=== PATIENT | female | born 1980 | race Caucasian/White ===

== ENCOUNTER 2021-04-23 18:08 | Emergency (ER) | payer BC ==
--- NOTE | 2021-04-23 20:18 | XR ---
EXAMINATION TYPE: XR chest 1V portable DATE OF EXAM: 04/23/2021 COMPARISON: NONE HISTORY: Cough and congestion TECHNIQUE: Single view FINDINGS: There is some mild infiltrate right lower lobe. Other lung bautista are clear. Heart and medi astinum are normal. There is no pleural effusion. IMPRESSION: There is some mild right lower lobe pneumonia.
[2021-04-23] MEDS ORDERED: KETOROLAC 30 MG/ML 1 ML VIAL IVP STA (23:36)
[2021-04-23] MEDS ORDERED: DEXAMETHASONE SOD PHOSPHATE 10 MG/ML 1 ML VIAL IVP STA (23:36)
[2021-04-23] MEDS ORDERED: SODIUM CHLORIDE 0.9% 1,000 ML IV STA (23:36)
[2021-04-23] MEDS ORDERED: ACETAMINOPHEN TAB 500 MG TAB PO STA (23:36)
--- NOTE | 2021-04-23 23:39 | ED ---
Fever HPI - General Chief Complaint: Upper Respiratory Infection Stated Complaint: Covid Positive Time Seen by Provider: 04/23/21 23:33 Source: patient, family, RN notes reviewed, old records reviewed Mode of arrival: ambulatory Limitations: no limitations - History of Present Illness Initial Comments: This is a 40-year-old female to the ER for evaluation. Patient has known coronavirus coming a friend by treatment for coronavirus. Patient better. No current nausea vomiting or diarrhea. No other complaints no chest pain MD Complaint: fever, malaise -: days(s) Context: sick contacts, multiple patients with similar symptoms Associated Symptoms: chills, myalgias, sore throat, cough, chest pain, nausea Treatments Prior to Arrival: none - Related Data Allergies Allergy/AdvReac Type Severity Reaction Status Date / Time No Known Allergies Allergy Verified 04/23/21 19:41 Review of Systems ROS Statement: Those systems with pertinent positive or pertinent negative responses have been documented in the HPI. ROS Other: All systems not noted in ROS Statement are negative. Past Medical History Past Medical History: No Reported History History of Any Multi-Drug Resistant Organisms: None Reported Past Surgical History: No Surgical Hx Reported Past Psychological History: No Psychological Hx Reported Smoking Status: Never smoker Past Alcohol Use History: None Reported Past Drug Use History: None Reported General Exam Limitations: no limitations General appearance: alert, in no apparent distress Head exam: Present: atraumatic, normocephalic, normal inspection Eye exam: Present: normal appearance, PERRL, EOMI. Absent: scleral icterus, conjunctival injection, periorbital swelling ENT exam: Present: normal exam, mucous membranes moist Neck exam: Present: normal inspection. Absent: tenderness, meningismus, lymphadenopathy Respiratory exam: Present: normal lung sounds bilaterally. Absent: respiratory distress, wheezes, rales, rhonchi, stridor Cardiovascular Exam: Present: regular rate, normal rhythm, normal heart sounds. Absent: systolic murmur, diastolic murmur, rubs, gallop, clicks GI/Abdominal exam: Present: soft, normal bowel sounds. Absent: distended, tenderness, guarding, rebound, rigid Extremities exam: Present: normal inspection, full ROM, normal capillary refill. Absent: tenderness, pedal edema, joint swelling, calf tenderness Back exam: Present: normal inspection Neurological exam: Present: alert, oriented X3, CN II-XII intact Psychiatric exam: Present: normal affect, normal mood Skin exam: Present: warm, dry, intact, normal color. Absent: rash Course Vital Signs 04/23/21 04/23/21 04/24/21 19:36 23:56 00:00 Temperature 102.7 F H 99.2 F Pulse Rate 93 82 Respiratory 26 H 18 Rate Blood Pressure 126/76 123/78 O2 Sat by Pulse 99 97 Oximetry - Reevaluation(s) Reevaluation #1: 04/24/21 01:35 Medical record is reviewed Reevaluation #2: 04/24/21 01:35 A she receives coronavirus antibodies without complication Reevaluation #3: 04/24/21 01:35 Patient informed of results and questions are answered Medical Decision Making - Medical Decision Making 40 female to the emergency department for evaluation positive for coronavirus. Patient given treatment here in the ER and can be discharged home - Lab Data Lab Results 04/23/21 Range/Units 19:43 Coronavirus (PCR) Detected A (Not Detectd) - Radiology Data Radiology results: report reviewed (Chest x-rays negative for acute disease), image reviewed Disposition Clinical Impression: Coronavirus infection Disposition: HOME SELF-CARE Condition: Good Instructions (If sedation given, give patient instructions): Coronavirus Disease 2019 (COVID-19) Is patient prescribed a controlled substance at d/c from ED?: No Referrals: Leia Holguin MD [Primary Care Provider] - 1-2 days
[2021-04-23] MEDS ORDERED: SODIUM CHLORIDE 0.9% 50 ML IVPB ONE (23:45)
[2021-04-23] MEDS ORDERED: SOTROVIMAB (EUA) 500 MG in SODIUM CHLORIDE 0.9% 100 ML IVPB ONE (23:45)
[2021-04-23 23:57] VITALS: PULSE 82; RESP 18
[2021-04-24 02:17] VITALS: BP 112/66; TEMP 98.7
== END 2021-04-24 02:11 | disposition home or self-care (01) ==
LOC: EC 18:08
DX: U07.1 COVID-19 (principal)
CPT/HCPCS: 99283; 96374; 96375; 96361; 87635; 71045; J1100; J1885; Q0247